=== PATIENT | female | born 1960 | race Caucasian/White ===

== ENCOUNTER → 2016-03-20 | Outpatient (CLI) | payer MEDICARE, OTHER ==
--- NOTE | 2016-03-20 22:15 | PN ---
DATE OF SERVICE: 03/20/2016 This is a 55-year-old lady who has been followed in the sleep center for treatment of excessive daytime sleepiness. We discussed the results of her polysomnogram which was done recently with the patient in detail. Apnea-hypopnea index is 3.2, which is in normal range. At the same time, in REM sleep it is increased to 11.9, but that is not considered to meet criteria for treatment with CPAP at the present time. Patient continues to have symptoms of excessive sleepiness. [place] Sleepiness Scale has increased to 14. MEDICATIONS: 1. Metformin. 2. Januvia. 3. Singulair. 4. Advair. 5. ( ). PHYSICAL EXAMINATION: VITAL SIGNS: BP 132/82, HR 64, RR 16. Oxygen saturation at room air 97%. Weight 197. BMI 39.7. HEENT: PERRLA, EOMI. LUNGS: Clear. HEART: S1, S2 regular. ABDOMEN: Obese, soft, nontender. EXTREMITIES: No edema. IMPRESSION: 1. No significant respiratory abnormalities have been documented during the sleep study. 2. Patient continues to have symptoms of excessive daytime sleepiness. [place] Sleepiness Scale increased to 14. She can take naps anytime. 3. Obesity. 4. Diabetes mellitus. 5. Asthma. 6. Sinus problems. 7. Pain in the right leg. 8. Status post recent spinal cord stimulator reinstallation. 9. Status post ankle surgery x3. PLAN: 1. PSG with following multiple sleep latency test for objective evaluation of patient's alertness during the day and again to evaluate her breathing during sleep. 2. Losing weight. 3. Sleep hygiene with regular time in bed for at least 8 hours. 4. No driving if feeling any sleepiness. Thank you very much for allowing me to participate in the management of your patient. Sincerely, Percy Johnson MD, PhD, FAASM. Diplomat of [employer] [employer], Sleep Medicine Board by [employer], [place] [employer]
== END | disposition home or self-care (01) ==

== ENCOUNTER → 2017-05-25 | Outpatient (CLI) | payer MEDICARE, OTHER ==
--- NOTE | 2017-05-25 14:47 | MM ---
Reason for exam: additional evaluation requested from prior study. Last mammogram was performed 2 years and 9 months ago. History: Patient is postmenopausal. Family history of premenopausal breast cancer in grandmother at age 35. Benign excisional biopsy of the left breast. Took estrogen for 3 years beginning at age 22. Physical Findings: Nurse Summary: 1cm nodule in the right breast at 12, 11 o'clock (nurse mj). MG 3D Diag Mammo W/Cad ZOHREH Bilateral CC and MLO view(s) were taken. Prior study comparison: August 11, 2014, bilateral MG screening mammo w CAD. There are scattered fibroglandular densities. Finding: There is a 7 mm circumscribed oval mass in the upper outer quadrant, posterior position of the left breast. Asymmetric breast tissue in the right upper outer quadrant near anterior palpable. New finding and increase in size since August 11, 2014. These results were verbally communicated with the patient and result sheet given to the patient on 05/25/17. ASSESSMENT: Incomplete: need additional imaging evaluation, BI-RAD 0 RECOMMENDATION: Ultrasound of both breasts. (left increased size nodule and right palpables)
--- NOTE | 2017-05-25 14:49 | USB ---
Reason for exam: additional evaluation requested from abnormal screening. History: Patient is postmenopausal. Family history of premenopausal breast cancer in grandmother at age 35. Benign excisional biopsy of the left breast. Took estrogen for 3 years beginning at age 22. US Breast Limited BILAT Right breast ultrasound includes all four quadrants, the retroareolar region and axilla. Finding demonstrates no cystic or solid lesion seen greater than 0.50cm. Left breast ultrasound demonstrates no cystic or solid lesion seen greater than 0.50cm. Benign lymph nodes in axilla bilaterally. These results were verbally communicated with the patient and result sheet given to the patient on 05/25/17. ASSESSMENT: Benign, BI-RAD 2 RECOMMENDATION: Routine screening mammogram of both breasts in 1 year. Manage on a clinical basis with regard to right palpable.
== END | disposition home or self-care (01) ==
LOC: RADMAMWWP 12:45
PROVIDERS: ATTEND Family Medicine
DX: N63.10 Unspecified lump in the right breast, unspecified quadrant (principal); N63.20 Unspecified lump in the left breast, unspecified quadrant; R92.8 Other abnormal and inconclusive findings on diagnostic imaging of breast
CPT/HCPCS: 77066; 76642; G0279

== ENCOUNTER → 2018-09-16 | Outpatient (CLI) | payer MEDICARE, OTHER ==
--- NOTE | 2018-09-17 10:59 | MM ---
Reason for exam: screening (asymptomatic). Last mammogram was performed 1 year and 4 months ago. History: Patient is postmenopausal. Family history of premenopausal breast cancer in grandmother at age 35. Benign excisional biopsy of the left breast. Took estrogen for 3 years beginning at age 22. Physical Findings: A clinical breast exam by your physician is recommended on an annual basis and results should be correlated with mammographic findings. MG 3D Screening Mammo W/Cad Bilateral CC and MLO view(s) were taken. Prior study comparison: May 25, 2017, bilateral MG 3d diag mammo w/cad ZOHREH. August 11, 2014, bilateral MG screening mammo w CAD. There are scattered fibroglandular densities. No significant changes when compared with prior studies. ASSESSMENT: Benign, BI-RAD 2 RECOMMENDATION: Routine screening mammogram of both breasts in 1 year.
== END | disposition home or self-care (01) ==
LOC: RADMAMWWP 16:15
PROVIDERS: ATTEND Family Medicine
DX: Z12.31 Encounter for screening mammogram for malignant neoplasm of breast (principal)
CPT/HCPCS: 77063; 77067